=== PATIENT | female | born 1965 | race Caucasian/White ===

== ENCOUNTER 2018-07-09 01:32 | Emergency (ER) | payer OTHER ==
[~2018-07-09] VITALS: Ht 160 cm; Wt 51.7 kg
[2018-07-09] MEDS ORDERED: IV NORMAL SALINE 1000ML BAG 1,000 ML IV ONE (01:45)
[2018-07-09] MEDS ORDERED: ASPIRIN 325 MG TABLET PO ONE (01:45)
[2018-07-09] MEDS ORDERED: ONDANSETRON PF 4 MG/2 ML VIAL. IV ONE (02:00)
[2018-07-09] MEDS ORDERED: fentaNYL PF VIAL 100 MCG/2 ML VIAL IV ONE (02:00)
--- NOTE | 2018-07-09 02:55 | PHYS DOC ---
Past Medical History Past Medical History: Anxiety, CVA, Depression Additional Past Medical Histor: MS Past Surgical History: Tonsillectomy, Tubal ligation Additional Past Surgical Histo: Right shoulder Alcohol Use: None Drug Use: Marijuana Adult General Chief Complaint Chief Complaint: CHEST PAIN HPI HPI Patient is a 53 year old female who presents to the ED with chest pain. This started at 0030 suddenly with no inciting event. She states it was a pressure- like 9/10 pain that was retrosternal and also in the left sided chest cavity which radiated up to the left neck and out to the left arm. At this time she states that she felt like she could not breathe. She took a xanax and oxycodone right after her pain started, which helped slightly. She now rates her pain as 6 /10. Review of Systems Review of Systems Constitutional: Denies fever or chills [] Eyes: Denies change in visual acuity, redness, or eye pain [] HENT: Denies nasal congestion or sore throat [] Respiratory: Admits shortness of breath. Denies cough [] Cardiovascular: Admits chest pain. Denies palpitations. GI: Admits nausea. Denies abdominal pain, vomiting, bloody stools or diarrhea [] : Denies dysuria or hematuria [] Musculoskeletal: Denies back pain or joint pain [] Integument: Denies rash or skin lesions [] Neurologic: Denies headache, focal weakness or sensory changes [] Complete systems were reviewed and found to be within normal limits, except as documented in this note. Current Medications Current Medications Current Medications Medications (Trade) Dose Ordered Sig/[facility] Start Time Stop Time Status Last Admin Dose Admin Aspirin (Vanna Aspirin) 325 mg 1X ONCE 07/09/18 01:45 07/09/18 01:54 DC Fentanyl Citrate (Fentanyl 2ml Vial) 50 mcg 1X ONCE 07/09/18 02:00 07/09/18 02:02 DC 07/09/18 02:38 50 MCG Ondansetron HCl (Zofran) 4 mg 1X ONCE 07/09/18 02:00 07/09/18 02:02 DC 07/09/18 02:38 4 MG Sodium Chloride 1,000 ml @ 1,000 mls/hr 1X ONCE 07/09/18 01:45 07/09/18 02:44 DC 07/09/18 02:39 1,000 MLS/HR Allergies Allergies Allergies Coded Allergies Type Severity Reaction Last Updated Verified aspirin Allergy Unknown 07/09/18 Yes prochlorperazine Allergy Unknown 07/09/18 Yes Physical Exam Physical Exam Constitutional: Well developed, well nourished, no acute distress, non-toxic appearance. [] HENT: Normocephalic, atraumatic, nose normal. [] Eyes: PERRL, EOMI, conjunctiva normal, no discharge. [] Neck: Normal range of motion, no tenderness, supple, no stridor. [] Cardiovascular: Heart rate regular rhythm, no murmur [] Lungs & Thorax: Mild chest wall tenderness. Bilateral breath sounds clear to auscultation [] Abdomen: Soft, no tenderness Skin: Warm, dry, no erythema, no rash. Back: No tenderness, no CVA tenderness. [] Extremities: No tenderness, no cyanosis, no clubbing, ROM intact, no edema. [] Neurologic: Alert and oriented, normal motor function, normal sensory function, no focal deficits noted. [] Psychologic: Affect normal, judgement normal, mood normal. [] Current Patient Data Vital Signs Vital Signs Date Time Temp Pulse Resp B/P (MAP) Pulse Ox O2 Delivery O2 Flow Rate FiO2 07/09/18 01:35 98.9 76 18 120/77 (91) 98 Room Air 98.9 Lab Values Laboratory Tests Test 07/09/18 02:47 White Blood Count 4.2 x10^3/uL (4.0-11.0) Red Blood Count 4.16 x10^6/uL (3.50-5.40) Hemoglobin 12.7 g/dL (12.0-15.5) Hematocrit 37.5 % (36.0-47.0) Mean Corpuscular Volume 90 fL (79-100) Mean Corpuscular Hemoglobin 31 pg (25-35) Mean Corpuscular Hemoglobin Concent 34 g/dL (31-37) Red Cell Distribution Width 12.6 % (11.5-14.5) Platelet Count 294 x10^3/uL (140-400) Neutrophils (%) (Auto) 44 % (31-73) Lymphocytes (%) (Auto) 47 % (24-48) Monocytes (%) (Auto) 7 % (0-9) Eosinophils (%) (Auto) 2 % (0-3) Basophils (%) (Auto) 1 % (0-3) Neutrophils # (Auto) 1.8 x10^3uL (1.8-7.7) Lymphocytes # (Auto) 1.9 x10^3/uL (1.0-4.8) Monocytes # (Auto) 0.3 x10^3/uL (0.0-1.1) Eosinophils # (Auto) 0.1 x10^3/uL (0.0-0.7) Basophils # (Auto) 0.0 x10^3/uL (0.0-0.2) Prothrombin Time 13.8 SEC (11.7-14.0) Prothrombin Time INR 1.1 (0.8-1.1) D-Dimer (Rosemary) < 0.27 ug/mlFEU Sodium Level 145 mmol/L (136-145) Potassium Level 3.9 mmol/L (3.5-5.1) Chloride Level 108 mmol/L (98-107) H Carbon Dioxide Level 27 mmol/L (21-32) Anion Gap 10 (6-14) Blood Urea Nitrogen 11 mg/dL (7-20) Creatinine 0.7 mg/dL (0.6-1.0) Estimated GFR (Cockcroft-Gault) 87.9 BUN/Creatinine Ratio 16 (6-20) Glucose Level 88 mg/dL (70-99) Calcium Level 8.9 mg/dL (8.5-10.1) Magnesium Level 2.0 mg/dL (1.8-2.4) Total Bilirubin 0.5 mg/dL (0.2-1.0) Aspartate Amino Transferase (AST) 17 U/L (15-37) Alanine Aminotransferase (ALT) 16 U/L (14-59) Alkaline Phosphatase 63 U/L (46-116) Creatine Kinase 52 U/L (26-192) Creatine Kinase MB (Mass) < 0.5 ng/mL (0.0-3.6) Creatine Kinase MB Relative Index % (0-4) Troponin I Quantitative < 0.017 ng/mL (0.000-0.055) KE-Eus-S-Type Natriuretic Peptide 37 pg/mL (0-124) Total Protein 6.6 g/dL (6.4-8.2) Albumin 3.3 g/dL (3.4-5.0) L Albumin/Globulin Ratio 1.0 (1.0-1.7) Lipase 80 U/L (73-393) Laboratory Tests 07/09/18 02:47 Laboratory Tests 07/09/18 02:47 EKG EKG [] Radiology/Procedures Radiology/Procedures EKG taken on 07/09/2018 at 0138. Sinus rhythm at 70 bpm. Baseline artifact noted. No STEMI. Course & Med Decision Making Course & Med Decision Making Pertinent Labs and Imaging studies reviewed. (See chart for details) He is a 53-year-old female presented to the ED with left-sided and retrosternal chest pain. Troponin pending. D-dimer pending. X-ray or CT pending. Dragon Disclaimer Dragon Disclaimer This electronic medical record was generated, in whole or in part, using a voice recognition dictation system. Departure Departure Impression: Primary Impression: Atypical chest pain Additional Impression: Anxiety Disposition: 01 HOME, SELF-CARE Condition: STABLE Referrals: NO PCP (PCP) Patient Instructions: Anxiety and Panic Attacks, Ogof-bu-Qlhu, Chest Pain ( Nonspecific), [id number] Problem Qualifiers PAT SALGADO DO Jul 09, 2018 02:55
[2018-07-09 02:59] LABS: BASO % 1 % (0-3); EOS # 0.1 x10^3/uL (0.0-0.7); EOS % 2 % (0-3); HEMATOCRIT 37.5 % (36.0-47.0); HEMOGLOBIN 12.7 g/dL (12.0-15.5); LYMPH # 1.9 x10^3/uL (1.0-4.8); LYMPH % 47 % (24-48); MEAN CORPUSCULAR HEMOGLOBIN 31 pg (25-35); MEAN CORPUSCULAR HGB CONC 34 g/dL (31-37); MEAN CORPUSCULAR VOLUME 90 fL (79-100); MONO # 0.3 x10^3/uL (0.0-1.1); MONO % 7 % (0-9); NEUT # 1.8 x10^3uL (1.8-7.7); NEUT % 44 % (31-73); PLATELET COUNT 294 x10^3/uL (140-400); RED BLOOD COUNT 4.16 x10^6/uL (3.50-5.40); RED CELL DISTRIBUTION WIDTH 12.6 % (11.5-14.5); WHITE BLOOD COUNT 4.2 x10^3/uL (4.0-11.0)
[2018-07-09 03:11] LABS: CALCIUM 8.9 mg/dL (8.5-10.1); CREATININE 0.7 mg/dL (0.6-1.0); GFR 87.9; POTASSIUM 3.9 mmol/L (3.5-5.1)
[2018-07-09 03:16] LABS: ALBUMIN 3.3 g/dL (3.4-5.0); TOTAL BILIRUBIN 0.5 mg/dL (0.2-1.0); TOTAL PROTEIN 6.6 g/dL (6.4-8.2)
[2018-07-09 03:18] LABS: PROTHROMBIN TIME PATIENT 13.8 SEC (11.7-14.0)
[2018-07-09 03:37] LABS: CREATINE KINASE 52 U/L (26-192)
--- NOTE | 2018-07-09 04:05 | EKG ---
[facility] [address] [place] [address] Test Date: 2018-07-09 Test Time: 01:38:51 Pat Name: KIZZY ANDERSON Department: Room: Gender: Female Test Data Developer: : 1965 Requested By: PAT SALGADO Order Number: [id number] Reading MD: Mckay Mullins MD Measurements Intervals [place] Rate: 72 P: 59 NC: 136 QRS: -5 QRSD: 82 T: 30 QT: 368 QTc: 404 Interpretive Statements SINUS RHYTHM Electronically Signed On 07-13-2018 21:51:03 CDT by Mckay Mullins MD
[2018-07-09 05:15] VITALS: BP 111/68
--- NOTE | 2018-07-09 07:44 | RAD ---
Chest, 2 views, 07/09/2018: HISTORY: Chest pain The heart size is normal. The lungs are clear. There is no evidence of pleural fluid. IMPRESSION: No acute cardiopulmonary abnormality is detected. Electronically signed by: Maximo Monteiro MD (07/09/2018 7:41 AM) [facility]
== END 2018-07-09 05:17 | disposition home or self-care (01) ==
LOC: ER 01:32
DX: R07.89 Other chest pain (principal); F41.9 Anxiety disorder, unspecified; F32.9 Major depressive disorder, single episode, unspecified; Z86.73 Personal history of transient ischemic attack (TIA), and cerebral infarction without residual deficits; Z88.6 Allergy status to analgesic agent; Z88.8 Allergy status to other drugs, medicaments and biological substances
CPT/HCPCS: 36415; 71046; 80053; 82553; 83690; 83735; 83880; 84484; 85025; 85379; 85610; 93005; 96374; 96375; 99284; J2405; J3010; J7030

== ENCOUNTER → 2019-08-31 | Outpatient (CLI) | payer MEDICARE, OTHER ==
[~2019-08-31] MED LIST: CYCL10TA2 PO; DEXL60CA2 PO; FLUO40CA2 PO; PREG200C PO; PROM25SU3 RC; SUMA100T3 PO; VENTOLIN HFA18 GM INH
--- NOTE | 2019-09-04 12:08 | EEG ---
DATE OF SERVICE: 08/31/2019 EEG NUMBER: [id number] OBJECTIVE: The patient is a 54-year-old female with episodes of syncope. DESCRIPTION OF PROCEDURE: This is a digital study. Electrodes are placed according to the international 10-20 system. Bipolar and referential montages are available. Activation procedures typically include hyperventilation and intermittent photic stimulation. INTERPRETATION: The waking background consists of 9-10 Hz, 50-100 mV activity, symmetrically distributed over parietooccipital regions and reactive to eye opening. Hyperventilation and intermittent photic stimulation are noncontributory. Stage 1 sleep is achieved with normal electroencephalogram patterns. IMPRESSION: This electroencephalogram with the patient awake and asleep is within normal limits. There is no focal, paroxysmal, or epileptiform activity. Thank you for letting us help with the patient's care. VINOD ARCE MD DR: ERIN/raisa JOB#: [id number] / [id number]
[2019-09-14 11:10] VITALS: BP 117/70
== END | disposition home or self-care (01) ==
LOC: RT 08:00
PROVIDERS: ATTEND Psychiatry & Neurology Neurology with Special Qualifications in Child Neurology
DX: R55 Syncope and collapse (principal); R06.4 Hyperventilation
CPT/HCPCS: 95816

== ENCOUNTER → 2019-09-10 | Outpatient (CLI) | payer MEDICARE, OTHER | END | disposition home or self-care (01) | LOC: LAB 14:00 | PROVIDERS: ATTEND Internal Medicine Gastroenterology | DX: Z01.818 Encounter for other preprocedural examination (principal); Z11.59 Encounter for screening for other viral diseases | CPT/HCPCS: C9803; U0003; 36415 ==

== ENCOUNTER → 2019-09-14 | Day surgery (SDC) | payer MEDICARE, OTHER ==
[~2019-09-14] MED LIST changes: +HYDROmorphone 2 MG/ML VIAL IV PRN; +IV RINGERS,LACTATED 1000ML 1,000 ML IV SCH; +LIDOCAINE 1% PF 2 ML VIAL. ID PRN; +LIDOCAINE 2% PF 5 ML VIAL. ONE; +MORPHINE SULFATE 2 MG/ML VIAL. IV PRN; +ONDANSETRON PF 4 MG/2 ML VIAL. IV PRN; +PROPOFOL 10 MG/ML (20ML) VIAL. IV ONE; +fentaNYL PF VIAL 100 MCG/2 ML VIAL IV PRN
[2019-09-14 11:10] VITALS: BP 117/70
--- NOTE | 2019-09-16 08:07 | PATHOLOGY ---
[facility] Accession Number: [id number] . 01 Material submitted: . PART A: small bowel - SMALL BOWEL BIOPSY PART B: stomach - ANTRAL BIOPSY PART C: esophagus - DISTAL ESOPHAGUS BIOPSY. Modifiers: distal PART D: esophagus - MID ESOPHAGUS BIOPSY. Modifiers: mid . 01 Clinical history: . Dysphagia . 02 Diagnosis: A. Small bowel biopsies: - No significant pathologic abnormalities. . B. Gastric biopsies, antrum: - Focal superficial mucosal congestion and slight chronic inflammation. . C. Esophageal biopsies, distal esophagus: - Reflux esophagitis. . D. Esophageal biopsy, middle esophagus: - Segments of mildly hyperplastic squamous esophageal mucosa. (JPM:sathya 09/15/2019) [facility] 09/15/2019 1617 Local . 02 Comment: Sections of the small bowel biopsy reveal segments of duodenal mucosa. Where best oriented, the mucosal villi show no sprue-like changes or significant inflammatory changes. . Sections of the gastric biopsy reveal segments of gastric antral and antral/body transition mucosa showing focal congestion and slight chronic inflammation. A properly controlled immunoperoxidase stain for Helicobacter is negative for Helicobacter organisms. . Sections of the distal esophageal biopsy reveal segments of squamous esophageal mucosa and esophagogastric mucosa showing focal moderate active chronic inflammation. The squamous esophageal mucosa is hyperplastic and shows focal intraepithelial eosinophils. There are less than 15 intraepithelial eosinophils /hpf. The findings are consistent with reflux esophagitis. There is no evidence of Morrison's change, dysplasia, or malignancy. . Sections of the middle esophagus biopsy reveal segments of mildly hyperplastic squamous esophageal mucosa. There is no evidence of Morrison's change, dysplasia, or malignancy. (JPM:[facility] 09/15/2019) . Special stain performed: Immunoperoxidase for Helicobacter on B1. . 02 Electronically signed: . Joel Dee MD, Pathologist NPI- [id number] . 01 Gross description: . A. The specimen is received in formalin, labeled "Ruiz, Tati, small bowel BX" and consists of 3 fragments of pink-bhatti tissue measuring between 0.3 x 0.2 cm and 0.5 x 0.3 cm which are entirely submitted in A1. . B. The specimen is received in formalin, labeled "Ruiz, Tati, antral BX" and consists of 4 fragments of pink-bhatti tissue measuring 1.0 x 0.6 x 0.3 cm in aggregate which are entirely submitted in B1. . C. The specimen is received in formalin, labeled "Ruiz, Tati, distal esophagus BX" and consists of 3 fragments of pink-bhatti tissue measuring between 0.3 x 0.2 cm and 0.4 x 0.3 cm which are entirely submitted in C1. . D. The specimen is received in formalin, labeled "Ruiz, Tati, mid esophagus BX" and consists of a translucent fragment of pink tissue measuring 0.4 x 0.2 cm which is entirely submitted in D1. (SDY; 09/14/2019) SYU/SYU 09/14/2019 1716 Local . 02 Pathologist provided ICD-10: K29.50, K21.0, R13.10 . 02 CPT . 396310, 512729, 166989, 973448, [id number] Specimen Comment: A courtesy copy of this report has been sent to [phone], [phone] Specimen Comment: [id number] Specimen Comment: Report sent to / DR ONEAL Performed at: 01 [facility] [address], [place] [id number] MD Luis Fernando Salinas MD Phone: [phone] Performed at: 02 [facility] [address] [place], [place] [id number] MD oJel Dee MD Phone: [phone]
--- NOTE | 2019-09-28 16:45 | PREOP HP ---
DATE OF SERVICE: REQUESTING PHYSICIAN: Leyda Goldberg REASON FOR PROCEDURE: GERD and dysphagia. HISTORY OF PRESENT ILLNESS: This is a 54-year-old female who presents for reflux. She has chronic reflux with worsening symptoms for the past several months. She is to undergo upper endoscopy for further evaluation. She has had a normal Cologuard 2 years ago and no past colonoscopy. PAST MEDICAL HISTORY: 1. Reflux. 2. Anemia. 3. Anxiety. 4. Arthritis. 5. Depression. 6. Fibromyalgia. 7. GERD. ALLERGIES: ASPIRIN AND PREDNISOLONE. FAMILY MEDICAL HISTORY: No colorectal cancer. There is ulcerative colitis in her father. No ovarian cancer in her mother and sister. SOCIAL HISTORY: She remotely drinks alcohol and denies tobacco. MEDICATIONS: Pantoprazole. PAST HISTORY: Tubal ligation. REVIEW OF SYSTEMS: A 13-point review of systems was done. It is positive as per HPI and otherwise negative. PHYSICAL EXAMINATION: VITAL SIGNS: She is afebrile and her vital signs are stable. GENERAL: She is a well-developed, well-nourished female, in no apparent distress. HEENT: Oropharynx is clear. CARDIOVASCULAR: S1, S2. LUNGS: Clear. ABDOMEN: Normoactive bowel sounds. No clubbing, cyanosis or edema. Soft, tender to palpation in the left lower quadrant. EXTREMITIES: No edema. NEUROLOGIC: Awake, alert and oriented x 3. ASSESSMENT AND PLAN: 1. Reflux, continue Dexilant and plan for upper endoscopy. 2. Dysphagia. Plan for upper endoscopy. 3. Colorectal cancer screening. She declines colonoscopy. Thank you for allowing me to participate in the care of this patient. YULIA PACE MD DR: ALLYN/raisa JOB#: [id number] / [id number]
== END ==
LOC: ENDOS 08:47
PROVIDERS: ATTEND Internal Medicine Gastroenterology
DX: R13.10 Dysphagia, unspecified (principal); K22.2 Esophageal obstruction; K29.50 Unspecified chronic gastritis without bleeding; K21.0 Gastro-esophageal reflux disease with esophagitis; K44.9 Diaphragmatic hernia without obstruction or gangrene; E78.00 Pure hypercholesterolemia, unspecified; J45.909 Unspecified asthma, uncomplicated; M79.7 Fibromyalgia; D64.9 Anemia, unspecified; F32.9 Major depressive disorder, single episode, unspecified; F41.9 Anxiety disorder, unspecified; Z87.39 Personal history of other diseases of the musculoskeletal system and connective tissue
CPT/HCPCS: 43239; 43450; 88305; 88342; J2704; J3490

== ENCOUNTER → 2019-11-10 | Outpatient (CLI) | payer MEDICARE, OTHER ==
[2019-09-14 11:10] VITALS: BP 117/70
[~2019-11-10] MED LIST changes: -HYDROmorphone 2 MG/ML VIAL IV PRN; -IV RINGERS,LACTATED 1000ML 1,000 ML IV SCH; -LIDOCAINE 1% PF 2 ML VIAL. ID PRN; -LIDOCAINE 2% PF 5 ML VIAL. ONE; -MORPHINE SULFATE 2 MG/ML VIAL. IV PRN; -ONDANSETRON PF 4 MG/2 ML VIAL. IV PRN; -PROPOFOL 10 MG/ML (20ML) VIAL. IV ONE; -fentaNYL PF VIAL 100 MCG/2 ML VIAL IV PRN
--- NOTE | 2019-11-10 11:51 | RAD ---
MR#: [id number] Date of Study: 11/10/2019 Ordering Physician: HERBERT JOHNSON, Referring Physician: HERBERT JOHNSON, Tech: Frederick Doherty MBA, RDMS, RVT, RDCS, RTR APPROVED REPORT Patient Location : OUT-PATIENT Indications Lower Extremity Edema : Bilateral Findings Grayscale images of the bilateral saphenofemoral junctions are grossly unremarkable. The right great saphenous vein measures 7.6 mm and the left great saphenous vein measures 7 mm. The bilateral great er and lesser saphenous veins do not show any evidence of reflux. Critical Notification Critical Value: No <Conclusion> 1. Negative for reflux in the bilateral greater and lesser saphenous veins. Signed by : Mckay Mullins, Electronically Approved : 11/10/2019 11:51:16
== END | disposition home or self-care (01) ==
LOC: US 10:40
PROVIDERS: ATTEND Internal Medicine Cardiovascular Disease
DX: R22.43 Localized swelling, mass and lump, lower limb, bilateral (principal); R07.9 Chest pain, unspecified
CPT/HCPCS: 93970

== ENCOUNTER → 2019-11-24 | Outpatient (CLI) | payer MEDICARE, OTHER ==
[2019-09-14 11:10] VITALS: BP 117/70
--- NOTE | 2019-11-24 16:22 | CARD ---
MR#: [id number] Date of Study: 11/24/2019 Ordering Physician: HERBERT JOHNSON, Referring Physician: HERBERT JOHNSON Tech: APPROVED REPORT Reason : Patient complained of pain PROCEDURE The patient underwent an Exercise Stress Test using the Nicholas Protocol. Blood pressure, heart rate, a nd EKG were monitored. An Echocardiogram was performed by master fire control technician in four stages in quad fashion. At peak stress four se lected images were obtained and placed side by side with resting images for comparison. STRESS ECHO FINDINGS The resting Echocardiogram showed normal left ventricular systolic contractility with an estimated Ej ection Fraction of about 55 %. The Resting Echocardiogram showed normal augmentation of myocardial wall segments using a 16 segment model. The Stress Echocardiogram showed normal augmentation of myocardial wall segments using a 16 segment m mary. The Stress Echocardiogram left ventricular systolic contractility has an estimated Ejection Fraction of about 70%. Test Type: Exercise Stress Nurse/Tech: Lacy Lopez R.N. Test Indications: Chest Pain Cardiac History and Allergies: High cholesterol Medications: SEE EMAR Resting ECG: SR Resting Heart Rate: 67 bpm Resting Blood Pressure: 139/84mmHg Pretest Chest Pain: No chest pain Nurse/Tech Notes S1S2, Lungs CTA Stress Symptoms No chest pain or symptoms. POST EXERCISE Reason for Termination: Reached target heart rate Target HR: 142 Max HR: 146 bpm 87% of Maximum Predicted HR: 167 bpm Exercise duration: 06:26 min:sec, 3 Stage Exercise capacity: 7.0METs Max Blood Pressure: 139/84mmHg Blood Pressure response to exercise: Normal blood pressure response during stress. Heart Rate response to exercise: WNL Chest Pain: No. Arrhythmia: No. ST Change: No. STRESS ECG Stress EKG shows no significant changes. <Conclusion> Average exercise capacity with approximately 7.0 Mets achieved. No significant EKG changes to suggest ischemia. The left ventricle is normal in size and wall thickness in both the rest and stress images. EF 70% Low risk study Signed by : Mckay Mullins, Electronically Approved : 11/24/2019 16:22:11
== END | disposition home or self-care (01) ==
LOC: ECHO 13:53
PROVIDERS: ATTEND Internal Medicine Cardiovascular Disease
DX: R07.9 Chest pain, unspecified (principal); E78.00 Pure hypercholesterolemia, unspecified
CPT/HCPCS: 93017; 93350

== ENCOUNTER → 2020-01-18 | Outpatient (CLI) | payer MEDICARE, OTHER ==
[2019-09-14 11:10] VITALS: BP 117/70
[~2020-01-18] MED LIST changes: +GADOTERATE 7.5 MMOL/15ML VIAL. IVP ONE
[2020-01-18 15:29] LABS: CREATININE 1.1 mg/dL (0.6-1.0); GFR 51.8
--- NOTE | 2020-01-18 16:17 | RAD ---
BRAIN WO/W CONTRAST History:Reason: MULTIPLE SCLEROSIS Technique: Multiplanar, multi sequential without and with intravenous contrast MR imaging was performed of the brain. Comparison: None Findings: No acute infarct. No intracranial hemorrhage. No mass effect. No hydrocephalus. Several foci of FLAIR hyperintensities within the predominantly frontal hemispheric white matter. No pathologic enhancement. Imaged orbits are unremarkable. Imaged paranasal sinuses and mastoid air cells are clear. Impression: 1. Mild nonspecific white matter changes, can be seen with demyelinating disease in the appropriate clinical setting. No pathologic enhancement. Electronically signed by: Jadon Mantilla DO (01/18/2020 4:14 PM) [id number]
== END | disposition home or self-care (01) ==
LOC: MRI 14:21
PROVIDERS: ATTEND Psychiatry & Neurology Neurology with Special Qualifications in Child Neurology
DX: G35 Multiple sclerosis (principal)
CPT/HCPCS: 36415; 70553; 82565; A9575

== ENCOUNTER → 2020-03-23 | Outpatient (CLI) | payer MEDICARE, OTHER ==
[2020-02-08 11:00] VITALS: BP 98/56
[~2020-03-23] MED LIST changes: -GADOTERATE 7.5 MMOL/15ML VIAL. IVP ONE; -PROM25SU3 RC; +PROM25SU4 RC
== END ==
LOC: LAB 11:12
PROVIDERS: ATTEND Internal Medicine Cardiovascular Disease
DX: Z01.812 Encounter for preprocedural laboratory examination (principal); I20.0 Unstable angina; Z20.828 Contact with and (suspected) exposure to other viral communicable diseases
CPT/HCPCS: U0003

== ENCOUNTER 2020-03-25 10:53 | Outpatient (CLI) | payer MEDICARE, OTHER ==
[2020-03-25] VITALS (12 sets, daily range): BP systolic 92–106; BP diastolic 60–68
[~2020-03-25] VITALS: Ht 160 cm; Wt 62.6 kg
[2020-03-25] MEDS ORDERED: FAMO40TA4 PO (11:31)
[2020-03-25] MEDS ORDERED: ALPR1TAB6 PO (11:31)
[2020-03-25] MEDS ORDERED: ONDA4TAB12 PO (11:33)
[2020-03-25] MEDS ORDERED: [UNRECOGNIZED DRUG - OTHER] (11:33)
[2020-03-25 12:01] LABS: HEMOGLOBIN 13.2 g/dL (12.0-15.5); RED BLOOD COUNT 4.27 x10^6/uL (3.50-5.40); WHITE BLOOD COUNT 2.8 x10^3/uL (4.0-11.0)
[2020-03-25 12:11] LABS: CREATININE 0.8 mg/dL (0.6-1.0); GFR 74.7; POTASSIUM 4.1 mmol/L (3.5-5.1)
[2020-03-25 12:14] LABS: PROTHROMBIN TIME PATIENT 13.1 SEC (11.7-14.0)
[2020-03-25] MEDS ORDERED: LIDOCAINE 1% PF 2 ML VIAL. ONE (12:53)
[2020-03-25] MEDS ORDERED: IOHEXOL 300 MG/ML 100ML VIAL. ONE (13:11)
--- NOTE | 2020-03-25 13:21 | PDOC ---
MODERATE SEDATION ASSESSMENT RISKS/ALTERNATIVES Risks/Alternatives Risks and alternatives of this type of sedation and procedure discussed with: RISK/ALTERNATIVES: Patient H & P ON CHART H & P H & P on chart and reviewed for co-morbid conditions and appropriate labs. H&P ON CHART: Yes STATUS PREG STATUS ASSESSED: N/A MEDS/ALLERGIES REVIEWED Meds/Allergies Reviewed Medications and Allergies including time and route of recently administered narcotics and sedatives. MEDS/ALLERGIES REVIEWED: Yes ASA RATING ASA RATING: II AIRWAY ASSESSMENT Airway Assessment Airway patency, oral function limitations, presence of caps, crowns, dentures, partials, and ability to extend neck assessed. AIRWAY ASSESSMENT: Yes MALLAMPATI SCORE MALLAMPATI SCORE: II PRE-SEDATION ASSESSMENT PRE-SEDATION ASSESSMENT: Yes HERBERT JOHNSON MD Mar 25, 2020 13:21
[2020-03-25] MEDS ORDERED: MIDAZOLAM HCL/PF 2 MG/2 ML VIAL. ONE (13:37)
[2020-03-25] MEDS ORDERED: VERAPAMIL 5 MG/2 ML VIAL. ONE (13:37)
[2020-03-25] MEDS ORDERED: HEPARIN for IV BOLUS 10,000 UNIT/10 ML VIAL. ONE (13:37)
[2020-03-25] MEDS ORDERED: NITROGLYCERIN 200 MCG/2 ML SYRINGE FOR CATH/VASC LAB. ONE (13:37)
[2020-03-25] MEDS ORDERED: fentaNYL PF VIAL 100 MCG/2 ML VIAL ONE (13:37)
[2020-03-25] MEDS ORDERED: VERAPAMIL 5 MG/2 ML VIAL. IART ONE (14:00)
[2020-03-25] MEDS ORDERED: NITROGLYCERIN 200 MCG/2 ML SYRINGE FOR CATH/VASC LAB. IART ONE (14:00)
[2020-03-25] MEDS ORDERED: HEPARIN for IV BOLUS 10,000 UNIT/10 ML VIAL. IART ONE (14:00)
[2020-03-25] MEDS ORDERED: MIDAZOLAM HCL/PF 2 MG/2 ML VIAL. IV ONE (14:00)
[2020-03-25] MEDS ORDERED: LIDOCAINE 1% PF 2 ML VIAL. INJ ONE (14:00)
[2020-03-25] MEDS ORDERED: fentaNYL PF VIAL 100 MCG/2 ML VIAL IV ONE (14:00)
[2020-03-25] MEDS ORDERED: IODIXANOL 320 MG/ML 100 ML VIAL. IART ONE (14:00)
--- NOTE | 2020-03-25 14:28 | CARD ---
MR#: [id number] Date of Study: 03/25/2020 Ordering Physician: HERBERT VELASQUEZ, Referring Physician: HERBERT VELASQUEZ, Tech: RT Jess (R) APPROVED REPORT Technologist: RT Jess (R) Nurse: Lacy Lopez R.N. Procedure(s) performed: Left heart catheterization, selective coronary angiography and left ventricul ography via right transradial approach FL TIME: 3.3 MINS DOSE: 14 GYCM2 CONTRAST: 48 ML MODERATE SEDATION: 20 MINS INDICATION The indication(s) include : Refractory chest pain concerning for unstable angina. CSHA Clinical Frailty Scale CSHA Clinical Frailty Scale: Managing Well Heart Failure Heart Failure: No PROCEDURE NARRATIVE After explaining the risks, benefits and alternative options, informed consent was obtained from ruma ent. Patient was brought to the cardiac Integrity Analyst and right wrist was prepped and draped in the usual fashion after confirming a positive modified Flip's test. Arterial access was obtained in the righ t radial artery and a 6 Australian sheath was inserted. 6 Australian Herb catheter was used to perform elisha ective angiography of the left and right coronary arteries. 6 Australian pigtail catheter was used to pe rform left ventriculography. Patient tolerated the procedure well. Hemostasis was achieved using TR band. There were no immediate complications. The following findings were noted. FINDINGS 1. Hemodynamics: Left ventricular end-diastolic pressure of 9 mmHg. No pullback gradient across the aortic valve. 2. Left ventriculography: Normal left ventricle systolic function with ejection fraction estimated at 60%. No significant mitral regurgitation seen. 3. Coronary angiography: a. The left main coronary artery arose from the left sinus of Valsalva, gave rise to the left anteri or descending and left circumflex arteries and did not show any significant stenosis. b. The left anterior descending artery did not show any significant stenosis. c. The left circumflex artery did not show any significant stenosis. d. The right coronary artery was a large and dominant vessel arising from the right sinus of Valsalv a that did not show any significant stenosis. Conclusion 1. No significant coronary artery disease 2. Normal left ventricle systolic function with ejection fraction estimated at 60% Signed by : Herbert Velasquez, Electronically Approved : 03/25/2020 14:27:43
[2020-03-25] MEDS ORDERED: IV 1/2 NORMAL SALINE 1,000 ML IV SCH (14:30)
--- NOTE | 2020-03-25 16:34 | NUR ---
Discharge Note: KIZZY ANDERSON TCC Discharge instructions and discharge home medications reviewed with Patient & Spouse and a copy given. All questions have been answered and understanding verbalized. The following instructions and handouts were given: transradial angiography and adult moderate sedation Discontinued lines and drains: Peripheral IV intact. Patient discharged to Home or Self Care withSpousevia Wheelchair
== END 2020-03-25 16:37 | disposition home or self-care (01) ==
LOC: CCL 10:53
PROVIDERS: ATTEND Internal Medicine Cardiovascular Disease
DX: I20.0 Unstable angina (principal); F32.9 Major depressive disorder, single episode, unspecified; G43.909 Migraine, unspecified, not intractable, without status migrainosus; G35 Multiple sclerosis; Z88.8 Allergy status to other drugs, medicaments and biological substances; Z79.899 Other long term (current) drug therapy; Z88.6 Allergy status to analgesic agent; Z82.49 Family history of ischemic heart disease and other diseases of the circulatory system; Z80.0 Family history of malignant neoplasm of digestive organs; Z98.51 Tubal ligation status; Z98.890 Other specified postprocedural states
CPT/HCPCS: 36415; 80048; 85027; 85610; 93458; 99152; C1769; C1892; J1644; J2250; J3010; J3490; Q9967

== ENCOUNTER 2020-07-07 15:33 | Emergency (ER) | payer MEDICARE, OTHER ==
[~2020-07-07] VITALS: Ht 160 cm; Wt 63.6 kg
[~2020-07-07 15:33] MED LIST changes: +ALPR1TAB6 PO; +FAMO40TA4 PO; +ONDA4TAB12 PO; +[UNRECOGNIZED DRUG - OTHER]
[2020-07-07 15:45] VITALS: BP 127/80
== END 2020-07-07 17:32 | disposition left against medical advice (07) ==
LOC: ER 15:33
DX: R25.1 Tremor, unspecified (principal); R42 Dizziness and giddiness; Z53.21 Procedure and treatment not carried out due to patient leaving prior to being seen by health care provider

== ENCOUNTER → 2020-07-29 | Outpatient (CLI) | payer MEDICARE, OTHER ==
[2020-07-07 15:45] VITALS: BP 127/80
[~2020-07-29] MED LIST changes: +IOHEXOL 180 MG/ML 10 ML VIAL. ONE; +TIZA4TAB2 PO; +methylPREDNISolone ACETATE 40 MG/ML VIAL. ONE; +methylPREDNISolone ACETATE 80 MG/ML VIAL. ONE
--- NOTE | 2020-07-29 13:07 | PDOC1 ---
INITIAL PAIN CONSULT DATE OF SERVICE: DOS: DATE: 07/29/20 TIME: 13:01 CHIEF COMPLAINT: Chief Complaint: Low back and right lower extremity pain HISTORY OF PRESENT ILLNESS: 55-year-old female presents with history of pain in the low back right lower extremity for many years worse over the past year or so not the result of any specific injury or accident that she is aware of but with increasing pain in the low back rating the right posterior gluteus posterior lateral thigh posterior calf into the foot on the right side only. Patient reports worse with walking standing changing positions better with sitting or laying down but does awaken her from sleep least 2-3 times at night especially if she lays on her right side. Patient reports it does not affect her bowel bladder control but does affect ability to walk and she uses a cane at times but does not have it with her today. Patient reports she has had physical therapy and has had exercise that she is currently doing chiropractic treatments in the distant past and epidural injections about 10 years ago all of which were helpful but only temporarily. Patient did have an MRI scan of the lumbar spine showing multi level degenerative changes worse at L4-5 and L5-S1 with diffuse disc bulging at L5-S1 and superimposed posterior disc extrusion. Patient rates her disability rating 0-10 10 being the worst is an 8 with him home with possibilities recreation social activity as well as sexual behavior 7 with occupation self- care activities and 3 with life support activities. Patient reports no loss of motor function but significant fatigability the right leg with walking and standing. PAST MEDICAL HISTORY: PMH: Arthritis, asthma, anemia, cervical cancer, dizziness PREVIOUS SURGERIES: Past Surgical Hx: Tubal ligation, thoracic outlet syndrome release, tonsillectomy, cervical conization CURRENT MEDICATIONS: Current Meds: Active Scripts Medications Dose Route/Sig Max Daily Dose Days Date Category Tizanidine Hcl 4 Mg Tablet 1 Tab PO BID 07/29/20 Reported Ondansetron Odt (Ondansetron) 4 Mg Tab.rapdis 1 Tab PO PRN Q6-8HRS 03/25/20 Reported [onda] 03/25/20 Reported Alprazolam 1 Mg Tablet 1 Tab PO BID 03/25/20 Reported Famotidine 40 Mg Tablet 40 Mg PO HS 03/25/20 Reported Imitrex (Sumatriptan Succinate) 100 Mg Tablet 100 Mg PO ONCE PRN 09/14/19 Reported Dexilant (Dexlansoprazole) 60 Mg Cap. 1 Cap PO DAILY 30 09/14/19 Reported Fluoxetine Hcl 40 Mg Capsule 60 Mg PO DAILY 09/14/19 Reported Lyrica (Pregabalin) 200 Mg Capsule 1 Cap PO BID 09/14/19 Reported ALLERGIES; Allergies: Coded Allergies: aspirin (Verified Allergy, Intermediate, 09/14/19) prochlorperazine (Verified Allergy, Intermediate, 09/14/19) FAMILY HISTORY: Family Hx: No major medical problems or conditions that she is aware of SOCIAL HISTORY: Social Hx: Patient denied alcohol does not smoke not use any illegal illicit recreational drugs is single lives locally in [facility] as 1 child living at home reports she is currently on disability secondary to her current pain condition. REVIEW OF SYSTEMS: ROS: Positive for those items mentioned in history of present illness, all systems are reviewed, otherwise negative ,and are complete full and well-documented on patient's chart. PHYSICAL EXAM: VS: Blood pressure 90/68 pulse 60 respirations 16 temperature is 98.1 F height is 5 feet 3 inches weight 135 pounds PE: PHYSICAL EXAMINATION: GENERAL: The patient is awake, alert, oriented, appropriate, very pleasant demeanor HEENT: Shows normocephalic, atraumatic. Extraocular movements are intact and symmetrical. Oral cavity: Mucous membranes moist and pink. Dentition is intact. NECK: Shows anterior throat supple without palpable lymphadenopathy noted. Swallow reflex symmetrical. CHEST: Shows normal on inspection. Breath sounds are clear bilaterally, no rales rhonchi wheezes auscultated. HEART: Shows S1, S2 clear. No murmurs auscultated. ABDOMEN: Soft, nontender, nondistended, obese. No palpable organomegaly is noted. No rebound or guarding demonstrated. BACK: Shows spine grossly in the midline. Normal-appearing cervical lordotic curvature. There is slightly increased thoracic kyphosis, some minor flattening of the lumbar lordotic curvature. Lumbar paraspinous muscles show symmetrical on inspection, on palpation shows some moderate tenderness diffusely throughout the upper, middle and lower distribution of the paraspinous muscles bilaterally and also into the lower thoracic paraspinous musculature, firm and tender, but without specific trigger points, without radiation of pain. The patient has good rotational motion of the lumbar spine, both laterally as well as extension and flexion without significant difficulty. No tenderness over the spinous processes, sacrum or sacroiliac regions. EXTREMITIES: Lower extremities show deep tendon reflexes 2+ in the patellar and tendo calcaneus tendons. Motor exam is 4 on a scale of 5 with right dorsiflexion, extension, quadriceps and hamstring flexion and 5/5 on the left. Peripheral pulses are 1+ posterior tibial. No peripheral edema is noted bilaterally. Lower extremities are warm and dry to touch, equal in color and appearance. Straight leg raise noted to be positive on the right about 40 degrees, left side is negative. Gaenslen's and Alistair's maneuvers are negative bilaterally as well. The patient is able to stand, stand on her toes that difficulty or loss of balance walks with a slight favoring gait does appear to favor the right lower extremity slightly but not use any assistive devices on her visit today. SKIN: Shows warm and dry, good turgor. No edema. No sores, rashes or bruising throughout. IMPRESSION: Impression: 55-year-old female with long history low back right lower extremity pain worse over the past year or so and radicular fashion. MRI scan lumbar spine as noted Arthritis Plan: Options were discussed with the patient including conservative medical management physical therapies interventional techniques. Patient would like to pursue interventional techniques. We discussed a lumbar epidural steroid injection using description as well as anatomical models to describe the procedure. Risks were discussed including but not limited to: Bleeding, infection, possibility of epidural hematoma and subsequent neurological compromise, dural puncture, headaches, spinal cord and/or nerve damage, side effects of steroid medication, and poor results regarding pain control. Patient understands and wished to proceed. Patient will return to clinic in approximate 2 weeks for follow-up, was counseled as to return appointment activity level and side effects to be aware of. Procedure is lumbar epidural steroid injection under local anesthetic using sterile prep and drape at the L5-S1 level using C-arm fluoroscopic guidance in both AP and lateral views medications injected is 120 mg Depo-Medrol + 10 mL preservative-free normal saline and 2 mL contrast- condition at discharge is stable patient tolerated procedure well had no complications. LIANA HUDSON MD Jul 29, 2020 13:07
== END | disposition home or self-care (01) ==
LOC: PNCL 09:57
PROVIDERS: ATTEND Anesthesiology
DX: M54.5 Low back pain (principal); M79.604 Pain in right leg; M19.90 Unspecified osteoarthritis, unspecified site; J45.909 Unspecified asthma, uncomplicated; D64.9 Anemia, unspecified; E78.00 Pure hypercholesterolemia, unspecified; K21.9 Gastro-esophageal reflux disease without esophagitis; F41.9 Anxiety disorder, unspecified; F32.9 Major depressive disorder, single episode, unspecified; Z98.51 Tubal ligation status; Z98.890 Other specified postprocedural states; Z87.891 Personal history of nicotine dependence; Z79.899 Other long term (current) drug therapy; Z88.8 Allergy status to other drugs, medicaments and biological substances
CPT/HCPCS: 62323; J1030; J1040; Q9965; G0463

== ENCOUNTER → 2020-08-12 | Outpatient (CLI) | payer MEDICARE, OTHER ==
--- NOTE | 2020-08-12 10:59 | PDOC4 ---
PROCEDURE Procedure Patient was consented for lumbar epidural steroid injection. Risks were dis cussed including but not limited to: Bleeding, infection, possibility of epidural hematoma and subsequent neurological compromise, dural puncture, headaches, spinal cord and/or nerve damage, side effects of steroid medication, and poor results regarding pain control. Patient understands and wished to proceed. Procedure is lumbar epidural steroid injection under local anesthetic using sterile prep and drape at the L5-S1 level using C-arm fluoroscopic guidance in both AP and lateral views medications injected is 120 mg Depo-Medrol + 10 mL preservative-free normal saline and 2 mL contrast- condition at discharge is stable patient tolerated procedure well had no complications. LIANA HUDSON MD Aug 12, 2020 10:59
--- NOTE | 2020-08-12 10:59 | PDOC ---
Progress Note - Pain Clinic Date of Service: DOS: DATE: 08/12/20 TIME: 10:56 Diagnosis: Dx: Lumbar radiculopathy with lumbar degenerative disc disease and lumbar herniated disc History or Present Illness: HPI: 55-year-old female returns for follow-up status post lumbar epidural steroid traction x1. Patient reports about 50% improvement in pain still decreased to 2 weeks after the injection. Patient reports still some pain in the low back and into the right lower extremity posterior gluteus posterior thigh some of the pos terior calf some on the left side as well but much less intense patient reports is worse with walking standing better with sitting or laying down generally is not awaken her from sleep at night. Patient reports no new motor or sensory deficits no new bowel or bladder incontinence patient rates pain is 8 on scale 10 is worse over the past week 7 on average 7 its least is a 7 today. Patient describes the pain as tight and tingling in the low back with burning shooting pain in the legs again worse on the right side. Physical Exam: VS: Blood pressure is 111/73 pulse 70 respirations 16 temperature is 98 F weight is 136 pounds PE: PHYSICAL EXAMINATION: GENERAL: The patient is awake, alert, oriented, appropriate, very pleasant demeanor HEENT: Shows normocephalic, atraumatic. Extraocular movements are intact and symmetrical. Oral cavity: Mucous membranes moist and pink. NECK: Shows anterior throat supple without palpable lymphadenopathy noted. Swallow reflex symmetrical. CHEST: Shows normal on inspection. Breath sounds are clear bilaterally. HEART: Shows S1, S2 clear. No murmurs auscultated. ABDOMEN: Soft, nontender, nondistended, obese. No palpable organomegaly is noted. BACK: Shows spine grossly in the midline. Normal-appearing cervical lordotic curvature. There is slightly increased thoracic kyphosis, some minor flattening of the lumbar lordotic curvature. Lumbar paraspinous muscles show symmetrical on inspection, on palpation shows some moderate tenderness diffusely throughout the upper, middle and lower distribution of the paraspinous muscles, but without specific trigger points, without radiation of pain. The patient has good rotational motion of the lumbar spine, both laterally as well as extension and flexion without significant difficulty. EXTREMITIES: Lower extremities show deep tendon reflexes 2+ in the patellar and tendo calcaneus tendons. Motor exam is 4 on a scale of 5 with right dorsiflexion, extension, quadriceps and hamstring flexion and 5/5 on the left. Peripheral pulses are 1+ posterior tibial. No peripheral edema is noted bilaterally. Lower extremities are warm and dry to touch, equal in color and appearance. SKIN: Shows warm and dry, good turgor. No edema. No sores, rashes or bruising throughout. Procedure: Procedure: Options discussed with the patient. Patient chart reviews her current medication regimen updated current view of systems updated today as well. We will proceed with a second in a series lumbar epidural steroid injection today with fluoroscopic guidance. Risks were discussed including but not limited to: Bleeding, infection, possibility of epidural hematoma and subsequent neurological compromise, dural puncture, headaches, spinal cord and/or nerve damage, side effects of steroid medication, and poor results regarding pain control. Patient understands and wished to proceed. Patient will return to the clinic in approximately 2 weeks for follow-up, was counseled as return appoin tment, activity level, and side effects to be aware of. Medication Injected: Med Injected: Procedure is lumbar epidural steroid injection under local anesthetic using sterile prep and drape at the L5 as well level using C-arm fluoroscopic guidance in both AP and lateral views medications injected is 120 mg Depo-Medrol + 10 mL preservative-free normal saline and 2 mL contrast- condition at discharge is stable patient tolerated procedure well had no complications. Condition at Discharge: Condition at Discharge: Condition at discharge is stable, patient already procedure well and had no complications. LIANA HUDSON MD Aug 12, 2020 10:59
== END | disposition home or self-care (01) ==
LOC: PNCL 09:52
PROVIDERS: ATTEND Anesthesiology
DX: M51.16 Intervertebral disc disorders with radiculopathy, lumbar region (principal); E78.00 Pure hypercholesterolemia, unspecified; J45.909 Unspecified asthma, uncomplicated; K21.9 Gastro-esophageal reflux disease without esophagitis; M19.90 Unspecified osteoarthritis, unspecified site; F41.9 Anxiety disorder, unspecified; F32.9 Major depressive disorder, single episode, unspecified; Z87.891 Personal history of nicotine dependence; Z79.899 Other long term (current) drug therapy; Z98.890 Other specified postprocedural states; Z72.89 Other problems related to lifestyle; Z88.8 Allergy status to other drugs, medicaments and biological substances
CPT/HCPCS: 62323; J1030; J1040; Q9965

== ENCOUNTER → 2020-12-15 | Day surgery (SDC) | payer MEDICARE, OTHER ==
[~2020-12-15] VITALS: Ht 160 cm; Wt 63.0 kg
[~2020-12-15] MED LIST changes: +ALBU2.5V8 IH; +AMOX875T PO; +FOLI0.8T5 PO; -IOHEXOL 180 MG/ML 10 ML VIAL. ONE; +IV RINGERS,LACTATED 1000ML 1,000 ML IV SCH; +LIDOCAINE 2% PF 5 ML VIAL. ONE; +OXYB10TA7 PO; +PROM118S10 PO; +PROPOFOL 10 MG/ML (20ML) VIAL. IV ONE; +VILA40TA PO; -methylPREDNISolone ACETATE 40 MG/ML VIAL. ONE; -methylPREDNISolone ACETATE 80 MG/ML VIAL. ONE
[2020-12-15 10:06] VITALS: BP 101/61
[2020-12-15 12:40] VITALS: BP 119/64
--- NOTE | 2020-12-16 14:08 | PATHOLOGY ---
[facility] Accession Number: [id number] . 01 Material submitted: . PART A: small bowel - SMALL BOWEL BIOPSY PART B: stomach - ANTRUM AND BODY BIOPSY PART C: esophagus - DISTAL ESOPHAGUS BIOPSY. Modifiers: distal PART D: esophagus - MID ESOPHAGUS BIOPSY. Modifiers: mid . 01 Clinical history: . DYSPHAGIA EGD . 02 Diagnosis: A. Small bowel biopsy: - Preserved villous architecture with focally increased intraepithelial lymphocytes. . B. Gastric biopsies, gastric body and gastric antrum: - Congestion and slight chronic inflammation. . C. Esophageal biopsies, distal esophagus: - Segments of esophagogastric and gastric mucosa showing chronic inflammation. . D. Esophageal biopsy, middle esophagus: - Segment of mildly hyperplastic squamous esophageal mucosa. (JPM:daisy; 12/16/2020) [facility] [place] 12/16/2020 1319 Local . 02 Comment: Sections of the small bowel biopsy reveal segments of duodenal and small intestine mucosa. Where best oriented, the mucosal villous architecture appears preserved. The mucosal villi focally show increased intraepithelial lymphocytes. The differential diagnosis includes celiac disease, bacterial overgrowth, nonsteroidal anti-inflammatory drug damage, reaction to H. pylori infection, tropical sprue, and certain autoimmune diseases. . Sections of the gastric biopsy reveal segments of gastric antral and gastric body mucosa showing congestion and slight chronic inflammation. A properly controlled immunoperoxidase stain for Helicobacter is negative for Helicobacter organisms. . Sections of the distal esophageal biopsy reveal segments of gastric mucosa showing mild chronic inflammation. One of the biopsy segments includes a small portion of squamous esophageal mucosa. There is no evidence of Morrison's change, dysplasia, or malignancy. . Sections of the middle esophageal biopsy reveal a segment of tangentially oriented, mildly hyperplastic squamous esophageal mucosa. There is no evidence of Morrison's change, dysplasia, or malignancy. (JPM:daisy; 12/16/2020) . Special stain performed: Immunoperoxidase stain for Helicobacter on B1 . 02 Electronically signed: . Joel Dee MD, Pathologist NPI- [id number] . 01 Gross description: . A. The specimen is received in formalin, labeled "Ruiz, Tati, small bowel BX". Received are 2 segments of pale bhatti tissue ranging in size from 0.4 to 0.5 cm in maximum dimensions. The specimen is submitted entirely in cassette A1. . B. The specimen is received in formalin, labeled "Ruiz, Tati, antrum and body". Received are 4 segments of pale bhtati tissue ranging in size from 0.2 cm to 0.6 cm in maximum dimensions. The specimen is submitted entirely in cassette B1. . C. The specimen is received in formalin, labeled "Ruiz, Tati, distal esophagus BX". Received are 3 segments of pale bhatti tissue ranging in size from 0.3 to 0.5 cm in maximum dimensions. The specimen is submitted entirely in cassette C1. . D. The specimen is received in formalin, labeled "Ruiz, Tati, mid-esophagus BX". Received is a segment of pale bhatti tissue measuring 0.4 cm in maximum dimensions. The specimen is submitted entirely in cassette D1.([facility]; 12/15/2020) [facility] 12/15/2020 1656 Local . 02 Pathologist provided ICD-10: K29.50, K20.90, R13.10 . 02 CPT . 354819, [id number], 564337, 103910, [id number] Specimen Comment: A courtesy copy of this report has been sent to [phone], [phone] Specimen Comment: [id number] Specimen Comment: Report sent to / DR ONEAL Performed at: 01 [facility] [address], [place], [place] [id number] MD Alec Victoria MD Phone: [phone] Performed at: 02 [facility] [address] [place], [place] [id number] MD Joel Dee MD Phone: [phone]
== END | disposition home or self-care (01) ==
LOC: ENDOS 09:40
PROVIDERS: ATTEND Internal Medicine Gastroenterology
DX: R13.10 Dysphagia, unspecified (principal); K29.50 Unspecified chronic gastritis without bleeding; K21.00 Gastro-esophageal reflux disease with esophagitis, without bleeding; K31.89 Other diseases of stomach and duodenum; E78.00 Pure hypercholesterolemia, unspecified; J45.909 Unspecified asthma, uncomplicated; M19.90 Unspecified osteoarthritis, unspecified site; F41.9 Anxiety disorder, unspecified; F32.9 Major depressive disorder, single episode, unspecified; Z79.899 Other long term (current) drug therapy; Z98.890 Other specified postprocedural states; Z88.8 Allergy status to other drugs, medicaments and biological substances; Z20.822 Contact with and (suspected) exposure to COVID-19
CPT/HCPCS: 43239; 43450; 87426; J2704; 88305; 88342

== ENCOUNTER → 2021-02-13 | Outpatient (CLI) | payer OTHER ==
[2020-12-15 12:40] VITALS: BP 119/64
[~2021-02-13] MED LIST changes: +CYCL10TA19 PO; -CYCL10TA2 PO; -IV RINGERS,LACTATED 1000ML 1,000 ML IV SCH; -LIDOCAINE 2% PF 5 ML VIAL. ONE; -PROPOFOL 10 MG/ML (20ML) VIAL. IV ONE; +TIZA-75 PO; -TIZA4TAB2 PO
--- NOTE | 2021-02-13 13:39 | RAD ---
Gastric emptying nuclear medicine study History:Nausea for 2 months. COMPARISON: Technique: After oral ingestion of a meal containing 2 mCi of technetium 99m sulfur colloid, anterior and posterior planar images of the upper abdomen were performed immediately and at 1 hour and 2 nir r and 3 hour and 4 hour increments. Percent retention of radiotracer activity was measured and calcul ated at 1 hour and 2 hour and 3 hour and 4 hour increments. Findings: Percent gastric retention at 1 hour is 65%. Normal range is 34.8% to 91%. Percent retention at 2 hours is 35%. Normal range is 2.7% to 60%. Percent retention at 3 hours is 15%. Normal range is 0.5% to 28%. Percent retention at 4 hours is 5%. Normal range is 0% to 10%. Half time gastric cleara nce is 92 minutes. Normal range is 45-90 minutes. Impression: No significant delay in gastric emptying is seen. Electronically signed by: Wilton Castillo MD (02/13/2021 1:36 PM) [id number]
== END ==
LOC: NM 09:47
PROVIDERS: ATTEND Internal Medicine Gastroenterology
DX: K31.89 Other diseases of stomach and duodenum (principal); R11.0 Nausea
CPT/HCPCS: 78264; A9541

== ENCOUNTER 2021-05-19 16:17 | Emergency (ER) | payer OTHER ==
[~2021-05-19] VITALS: Ht 160 cm; Wt 69.5 kg
[2021-05-19 19:15] VITALS: BP 125/78
--- NOTE | 2021-05-19 19:29 | PHYS DOC ---
Past Medical History Past Medical History: Anxiety, CVA, Depression Additional Past Medical Histor: MS (ALAN CAMACHO APRN) Past Surgical History: Tonsillectomy, Tubal ligation Additional Past Surgical Histo: Right shoulder,CARDIAC CATH (ALAN CAMACHO APRN) Smoking Status: Never Smoker Alcohol Use: None Drug Use: Marijuana (ALAN CAMACHO APRN) General Adult EDM: Chief Complaint: ABDOMINAL PAIN HPI: HPI: Patient is a 56 year old female who presents with upper abdominal pain and swelling. Patient states that she feels like her abdomen has felt swollen for the last 2 weeks. Patient reports nausea. Denies vomiting. Denies chest pain, shortness of breath. History of anxiety depression, CVA. Patient's been fully vaccinated. (ALAN CAMACHO APRN) Review of Systems: Review of Systems: ROS At least 10 ROS systems have been reviewed and are negative except as documented in the HPI. General: Negative except as outlined in HPI above. Skin: Negative except as outlined in HPI above. HEENT: Negative except as outlined in HPI above. Neck: Negative except as outlined in HPI above. Respiratory: Negative except as outlined in HPI above.. Cardiovascular: Negative except as outlined in HPI above. Abdomen: Negative except as outlined in HPI above. : Negative except as outlined in HPI above. Back/MSK: Negative except as outlined in HPI above. Neuro: Negative except as outlined in HPI above. Psych: Negative except as outlined in HPI above. (ALAN CAMACHO APRN) Heart Score: C/O Chest Pain: No Risk Factors: Risk Factors: DM, Current or recent (<one month) smoker, HTN, HLP, family history of CAD, obesity. Risk Scores: Score 0 - 3: 2.5% MACE over next 6 weeks - Discharge Home Score 4 - 6: 20.3% MACE over next 6 weeks - Admit for Clinical Observation Score 7 - 10: 72.7% MACE over next 6 weeks - Early Invasive Strategies (ALAN CAMACHO APRN) Allergies: Allergies: Allergies Coded Allergies Type Severity Reaction Last Updated Verified aspirin Allergy Intermediate 12/15/20 Yes prednisone Allergy Intermediate Nausea and Vomiting 12/15/20 Yes prochlorperazine Allergy Intermediate 12/15/20 Yes (ALAN CAMACHO APRN) Physical Exam: PE: Constitutional: Well developed, well nourished, no acute distress, non-toxic appearance. [] HENT: Normocephalic, atraumatic, bilateral external ears normal, oropharynx moist, no oral exudates, nose normal. [] Eyes: PERRLA, EOMI, conjunctiva normal, no discharge. [] Neck: Normal range of motion, no tenderness, supple, no stridor. [] Cardiovascular:Heart rate regular rhythm, no murmur [] Lungs & Thorax: Bilateral breath sounds clear to auscultation [] Abdomen: Bowel sounds normal, soft, no tenderness, no masses, no pulsatile masses. [] Skin: Warm, dry, no erythema, no rash. [] Back: No tenderness, no CVA tenderness. [] Extremities: No tenderness, no cyanosis, no clubbing, ROM intact, no edema. [] Neurologic: Alert and oriented X 3, normal motor function, normal sensory function, no focal deficits noted. [] Psychologic: Affect normal, judgement normal, mood normal. [] (ALAN CAMACHO APRN) Current Patient Data: Vital Signs: Vital Signs Date Time Temp Pulse Resp B/P (MAP) Pulse Ox O2 Delivery O2 Flow Rate FiO2 05/19/21 17:49 66 18 124/72 (89) 98 Room Air 05/19/21 16:24 97.9 97.9 (ALAN CAMACHO APRN) EKG: EKG: [] (ALAN CAMACHO APRN) Radiology/Procedures: Radiology/Procedures: [] (ALAN CAMACHO APRN) Radiology/Procedures: PROCEDURE: CT ABDOMEN PELVIS WO CONTRAST CT abdomen and pelvis without contrast PQRS statement: CT scans at this facility use dose reduction including either automated exposure control, iterative reconstructions, and /or weight based radiation dosing via mA and kV modification when appropriate to reduce radiation dose to as low as reasonably achievable. HISTORY: Abdominal pain. Abdomen findings: Lung bases unremarkable. Lumbar disc disease. Liver, gallbladder, pancreas, spleen, adrenal glands and kidneys are unremarkable. Mild bilateral pulmonary edema. No urinary calculi or hydronephrosis. Small sliding hiatal hernia of the upper gastric artery. The appendix is negative. No obstruction or inflammation of the GI tract. No abdominal fluid. Pelvis findings: Uterus, ovaries, bladder, rectum and bones are unremarkable. Pelvic phleboliths. No pelvic fluid. IMPRESSION: No acute process. No urinary calculi or hydronephrosis. The appendix is negative. Electronically signed by: Aydee Dunn MD (05/19/2021 9:18 PM) [facility] [place] DICTATED and SIGNED BY: AYDEE DUNN MD DATE: 05/19/21 [id number] (JEFFREY JULIEN APRN) Course & Med Decision Making: Course & Med Decision Making Pertinent Labs and Imaging studies reviewed. (See chart for details) [] 56-year-old female presents with abdominal pain and swelling. Patient symptoms started 2 weeks ago. Work-up in ER consist of labs, urinalysis, CT abdomen and pelvis, chest x-ray. Patient's pain was treated in the ER. All labs are unremarkable. UA positive for WBCs/ leuks. Antibiotic sent to pharmacy to treat UTI. Transfer of patient care to Jeffrey CHRISTINA at 2044 (ALAN CAMACHO APRN) Course & Med Decision Making I assumed patient care at 2100 from Alan, nurse practitioner. Patient does have a urinary tract infection and will be treated with an antibiotic. Patient's blood work was unremarkable. A CT scan of abdomen pelvis showed no ac ambar findings. Patient advised to increase fluids and avoid bladder irritants. I discussed with patient all findings and diagnostic testing as well as the need to follow-up with PCP for further evaluation and treatment or return to the ER if any new or worsening symptoms. Strict return precautions were also discussed at length. Patient voiced understanding and agreement with the plan. Patient is hemodynamically stable at the time of disposition. (JEFFREY JULIEN APRN) Dragon Disclaimer: Dragenrique Disclaimer: This electronic medical record was generated, in whole or in part, using a voice recognition dictation system. (ALAN CAMACHO APRN) Departure Departure Impression: Primary Impression: Urinary tract infection Qualified Codes: N30.00 - Acute cystitis without hematuria Disposition: HOME / SELF CARE / HOMELESS Condition: STABLE Referrals: NAA ONEAL (PCP) Patient Instructions: Urinary Tract Infection Additional Instructions: You are seen in the emergency department today for abdominal pain. Your blood work and CT scan was unremarkable. Your urinalysis does show urinary tract infection which will be treated with an antibiotic. Please start and finish the antibiotic completely. Increase your fluids and avoid bladder irritants like caffeine, sugary beverages or alcohol. Please follow-up with your primary care provider on Saturday regarding your ER visit. Return to the emergency department if you develop worsening of your abdominal pain, intractable nausea or vomiting, high fevers refractory to treatment, blood in your stools or vomit or any new or worsening concerns. Scripts Sulfamethoxazole/Trimethoprim (BACTRIM DS TABLET) 1 Each Tablet 1 TAB PO BID for uti for 7 Days, #14 TAB 0 Refills Prov: ALAN CAMACHO APRN 05/19/21 ALAN CAMACHO APRN May 19, 2021 19:29 JEFFREY JULIEN APRN May 19, 2021 21:35
[2021-05-19 19:30] LABS: BILIRUBIN,URINE NEGATIVE (NEG); CLARITY,URINE CLEAR; COLOR,URINE YELLOW; NITRITE,URINE NEGATIVE (NEG); PROTEIN,URINE NEGATIVE (NEG-TRACE); UROBILINOGEN,URINE 0.2 mg/dL (0.2 mg/dL)
[2021-05-19 19:38] LABS: BACTERIA,URINE MODERATE /HPF (0-FEW); RBC,URINE 0 /HPF (0-2)
[2021-05-19] MEDS ORDERED: IV NORMAL SALINE 1000ML BAG 1,000 ML IV SCH (20:00)
--- NOTE | 2021-05-19 20:01 | RAD ---
XR CHEST 1V History: Reason: ABD PAIN / Spl. Instructions: / History: Comparison: July 09, 2018 Findings: No consolidation or pleural effusion. Normal heart size. No pneumothorax. Impression: 1. No acute cardiopulmonary process. Electronically signed by: Jadon Mantilla DO (05/19/2021 7:59 PM) [facility] [place]
[2021-05-19 20:08] LABS: BASO % 1 % (0-3); EOS # 0.1 x10^3/uL (0.0-0.7); EOS % 3 % (0-3); HEMATOCRIT 36.5 % (36.0-47.0); LYMPH # 1.9 x10^3/uL (1.0-4.8); LYMPH % 53 % (24-48); MEAN CORPUSCULAR HEMOGLOBIN 30 pg (25-35); MEAN CORPUSCULAR HGB CONC 33 g/dL (31-37); MEAN CORPUSCULAR VOLUME 90 fL (79-100); MONO # 0.3 x10^3/uL (0.0-1.1); MONO % 7 % (0-9); NEUT # 1.3 x10^3/uL (1.8-7.7); NEUT % 37 % (31-73); PLATELET COUNT 338 x10^3/uL (140-400); RED BLOOD COUNT 4.05 x10^6/uL (3.50-5.40); RED CELL DISTRIBUTION WIDTH 13.7 % (11.5-14.5); WHITE BLOOD COUNT 3.7 x10^3/uL (4.0-11.0)
[2021-05-19 20:19] LABS: PREG TEST PT QUAL NEGATIVE (NEG)
[2021-05-19 20:20] LABS: CALCIUM 8.8 mg/dL (8.5-10.1); GFR 57.6; POTASSIUM 4.1 mmol/L (3.5-5.1)
[2021-05-19 20:26] LABS: ALBUMIN 3.5 g/dL (3.4-5.0); ALBUMIN/GLOBULIN RATIO 0.9 (1.0-1.7); TOTAL BILIRUBIN 0.5 mg/dL (0.2-1.0); TOTAL PROTEIN 7.6 g/dL (6.4-8.2)
[2021-05-19] MEDS ORDERED: SULF1TAB24 PO (20:44)
[2021-05-19] MEDS ORDERED: MORPHINE SULFATE 4 MG/ML INJ. IVP ONE (21:00)
--- NOTE | 2021-05-19 21:20 | RAD ---
CT abdomen and pelvis without contrast PQRS statement: CT scans at this facility use dose reduction including either automated exposure cont rol, iterative reconstructions, and /or weight based radiation dosing via mA and kV modification when appropriate to reduce radiation dose to as low as reasonably achievable. HISTORY: Abdominal pain. Abdomen findings: Lung bases unremarkable. Lumbar disc disease. Liver, gallbladder, pancreas, spleen, adrenal glands and kidneys are unremarkable. Mild bilateral pulmonary edema. No urinary calculi or h ydronephrosis. Small sliding hiatal hernia of the upper gastric artery. The appendix is negative. No obstruction or inflammation of the GI tract. No abdominal fluid. Pelvis findings: Uterus, ovaries, bladder, rectum and bones are unremarkable. Pelvic phleboliths. No pelvic fluid. IMPRESSION: No acute process. No urinary calculi or hydronephrosis. The appendix is negative. Electronically signed by: Melvin Rene MD (05/19/2021 9:18 PM) [facility]
--- NOTE | 2021-05-20 01:39 | EKG ---
[facility] [address] [place] [address] Test Date: 2021-05-19 Test Time: 19:44:52 Pat Name: KIZZY ANDERSON Department: Room: Gender: F Machinery Engineer: : [id number] Requested By: ALAN CAMACHO Order Number: [id number] Reading MD: Travis Raya Measurements Intervals Vinson Rate: 66 P: 36 SC: 146 QRS: -14 QRSD: 84 T: 15 QT: 376 QTc: 396 Interpretive Statements SINUS RHYTHM LEFTWARD AXIS NON SPECIFIC ST-T WAVE CHANGES Electronically Signed On 05-22-2021 12:10:06 MITER OPERATOR by Travis Raya
== END 2021-05-19 21:26 | disposition home or self-care (01) ==
LOC: ER 16:17
DX: N30.00 Acute cystitis without hematuria (principal); Z86.73 Personal history of transient ischemic attack (TIA), and cerebral infarction without residual deficits; Z98.51 Tubal ligation status; Z88.6 Allergy status to analgesic agent; Z88.5 Allergy status to narcotic agent; Z88.8 Allergy status to other drugs, medicaments and biological substances
CPT/HCPCS: 36415; 71045; 74176; 80053; 81001; 82550; 82553; 83690; 84703; 85025; 87077; 87086; 87186; 93005; 96361; 96374; 99285; J2270; J7030